=== PATIENT | male | born 1965 | race Caucasian/White ===

== ENCOUNTER 2019-12-05 06:41 | Day surgery (SDC) | payer OTHER, SELFPAY ==
--- NOTE | 2019-12-05 | PATH_ITS ---
[facility] Accession Number: [id number] . 01 Material submitted: . sigmoid colon - SIGMOID POLYP 25 CM . 02 Diagnosis: Sigmoid Colon at 25 cm, Polyp: Tubular adenoma. MRV 12/06/2019 0959 Local . 02 Electronically signed: . Darnell Gay MD, PhD, Pathologist NPI- [id number] . 01 Gross description: . SIGMOID POLYP 25 CM: Received in formalin are 2 fragment(s) of sena, soft tissue measuring 0.1 x 0.1 x 0.1 cm to 0.2 x 0.2 x 0.2 cm submitted entirely in 1 cassette(s) /[facility] 12/05/2019 1924 Local . 02 Pathologist provided ICD-10: D12.5 . 02 CPT . 643257 Performed at: 01 [facility] [address] [id number] MD López Umaña MD Phone: [phone] Performed at: 02 [facility] [address] [place], [place] [id number] MD Amy Gregory MD Phone: [phone]
[2019-12-05 07:25] VITALS: BP 117/81; PULSE 93; RESP 17; TEMP 36.3; O2SAT 93; BMI 23.7
--- NOTE | 2019-12-05 07:50 | PM.HP.1 ---
History of Present Illness History of Present Illness Date Patient Seen: 12/05/19 Time Patient Seen: 07:50 Chief complaint: [id number] Narrative: The patient is a gentleman here for his 1st colonoscopy. He had a positive fit test. Patient History Medical History (Updated 12/05/19 @ 07:51 by Uday Hidalgo MD) Appendicitis (Inactive) Family & Social History Social History: household members spouse Tobacco & Substance use: Smoking Status Never smoker alcohol intake current alcohol intake frequency a few times a week Substance Use Type does not use Meds Home Medications and Allergies Home Medications Medication Instructions Recorded Confirmed Type ibuprofen-diphenhydramine cit 1 cap PO QWEEK PRN 12/05/19 12/05/19 History [Motrin PM] ranitidine HCl [Zantac] 150 mg PO WEEKLY 12/05/19 12/05/19 History sildenafil [Viagra] 25 mg PO DAILY PRN 12/05/19 12/05/19 History Allergies Allergy/AdvReac Type Severity Reaction Status Date / Time No Known Drug Allergies Allergy Verified 12/05/19 07:23 Review of Systems Review of Systems ROS: Yes All systems reviewed with the patient and are negative except as otherwise documented Gastrointestinal Comments: Reflux Neurologic Comments: Occasional migraines Exam Vital Signs (past 8 hours): - 12/05/19 07:25 Temperature 97.3 F L Pulse Rate 93 H Respiratory Rate 17 Blood Pressure 117/81 Pulse Oximetry 93 Oxygen Delivery Method Room Air Narrative Exam Narrative: Pleasant cooperative patient no apparent distress. Lungs are clear to auscultation. No rales or rhonchi. Heart regular rate and rhythm no murmur gallop. Abdomen is soft nontender without mass. No obvious hernias. Patient is alert and oriented x3. Assessment & Plan Assessment and plan (1) Appendicitis: Current visit: No Status: Inactive Assessment & Plan narrative: The patient for a screening colonoscopy. I have discussed the procedure with them. Risks of bleeding, perforation which would necessitate major operation, failure to find remove all lesions, the potential tattoo were all discussed. All questions were answered. They wished to proceed.
--- NOTE | 2019-12-05 07:52 | PM.PREOP ---
Pre-operative Note Interval Note History & Physical reviewed/Exam performed by Physician: Yes Changes to H&P: No ASA Class (for procedural sedation): I
[2019-12-05] MEDS: fentaNYL 250 MCG/5 ML INJ IV (08:24)
[2019-12-05] MEDS: MIDAZOLAM 5 MG/ML VIAL IM (08:25)
--- NOTE | 2019-12-05 08:25 | PM.OP.ENDO ---
Operative Date/Time/Diagnoses Date of procedure: 12/05/19 Time of procedure: 08:25 Pre-op diagnosis: Positive fit test. This is his 1st colonoscopy Post-op diagnosis: same (One small polyp. Sigmoid diverticulosis.) Procedure & Clinicians Study performed: Colonoscopy with cold biopsy Same procedure as scheduled: Yes Indications: Screening/fit test positive Surgeon: Uday Hidalgo Procedure Notes SCOAP/Timeout: Perform Procedure in detail: The patient was placed in the left lateral decubitus position and underwent IV sedation directed by the surgeon consisting of fentanyl and Versed. Digital exam was unremarkable. I could feel no masses in his prostate.. The scope was inserted and advanced through the rectum into the sigmoid, descending, transverse, and ascending colon. He had a small polyp in the sigmoid colon which I biopsied on the way in and removed it. He was also noted to have diverticulosis.. The cecum was reached identified by the ileocecal valve and the appendiceal opening. The ileocecal valve was successfully cannulated. The terminal ileum was normal in appearance. The scope was gradually brought out. No other Polyps were found. The scope ultimately was retroflexed in the rectum. The appearance was remarkable for internal hemorrhoids without ulceration.. The scope was removed and the patient tolerated the procedure well. The prep was good Scope withdrawal time: 8 minutes Sedation minutes: 22 Findings: diverticulosis (Principally sigmoid) and polyp (Small polyp at 25 cm. ) Specimen(s): other (Polyps) Complications: none Post-procedure Recommendations: Colonscopy in 5 years (Unless the polyp is not neoplastic(adenomatous). In that case 10 years would be more appropriate) Follow up: as needed Disposition: PACU
[2019-12-05 08:28] VITALS: BP 114/77; PULSE 93; RESP 7; TEMP 36.4; O2SAT 93
[2019-12-05 08:33] VITALS: BP 106/74; PULSE 93; RESP 8; O2SAT 93
[2019-12-05 08:38] VITALS: BP 115/80; PULSE 88; RESP 15; O2SAT 98
[2019-12-05 08:42] VITALS: BP 120/78; PULSE 93; RESP 11; O2SAT 95
[2019-12-05 09:10] VITALS: BP 112/77; PULSE 73; RESP 16; TEMP 36.3; O2SAT 95
== END 2019-12-05 09:42 | disposition home or self-care (01) ==
PROVIDERS: PCP Physician Assistant; Referring Provider Specialist; Visit Provider Specialist
PROC: 0DJD8ZZ Inspection of Lower Intestinal Tract, Via Natural or Artificial Opening Endoscopic (ICD-10-PCS; CPT 45378; principal; 2019-12-05 07:45)
DX: R19.5 Other fecal abnormalities (principal); K57.30 Diverticulosis of large intestine without perforation or abscess without bleeding; D12.5 Benign neoplasm of sigmoid colon
CPT/HCPCS: 45380; 99152; J2250; J3010

== ENCOUNTER → 2020-09-27 09:35 | Outpatient (CLI) | payer OTHER, SELFPAY ==
[2020-09-27 12:26] LABS: COVID19 -Nasal RAPID Negative (Negative)
== END ==
PROVIDERS: Visit Provider Specialist
DX: Z01.812 Encounter for preprocedural laboratory examination (principal); Z20.828 Contact with and (suspected) exposure to other viral communicable diseases
CPT/HCPCS: 87635; C9803

== ENCOUNTER 2020-09-30 08:05 | Day surgery (SDC) | payer OTHER, SELFPAY ==
[2020-09-26 11:56] VITALS: BMI 25.7
[2020-09-30] VITALS (8 sets, daily range): BP systolic 106–124; BP diastolic 72–83; PULSE 62–78; RESP 10–20; TEMP 36.1–36.4; O2SAT 95–98; BMI 24.9
--- NOTE | 2020-09-30 | PATH_ITS ---
[facility] Accession Number: [id number] . 01 Material submitted: . PART A: back - RIGHT BACK MASS PART B: forearm - RIGHT DISTAL FOREARM MASS PART C: forearm - RIGHT UPPER FOREARM MASS PART D: arm - UPPER RIGHT UPPER ARM LESION POSTERIOR PART E: arm - LOWER RIGHT UPPER ARM LESION POSTERIOR . 01 Diagnosis: A. Right Back, Excision: Mature fibroadipose tissue, consistent with lipoma. . B. Right Distal Forearm, Excision: Angiolipoma. . C. Right Upper Forearm, Excision: Angiolipoma. . D. Upper Right Upper Arm Posterior, Excision: Angiolipoma. . E. Lower Right Upper Arm Posterior, Excision: Angiolipoma. [facility] 10/02/2020 0957 Local . 01 Electronically signed: . Francois Carranza MD, Dermatopathologist NPI- [id number] . 01 Gross description: . A. Received in formalin and labeled with right back mass is one piece of sena adipose tissue, measuring 5.3 x 3.8 x 2.3 cm. The tissue is inked, serially and transversely sectioned and submitted in regional sales representative sections in cassettes A1-A4, with one slice per cassette. B. Received in formalin and labeled with distal R forearm mass is one piece of sena adipose tissue, measuring 2.2 x 2.0 x 0.6 cm. The tissue is inked, serially sectioned into six slices and entirely submitted in cassettes B1 and B2, with three slices per cassette. C. Received in formalin and labeled with right upper forearm mass is one piece of sena adipose tissue, measuring 2.0 x 2.0 x 0.7 cm. The tissue is inked, serially sectioned into five slices, and entirely submitted in cassettes C1 and C2. Cassette C1 contains three slices and cassette C2 contains two slices. D. Received in formalin and labeled with upper right upper arm lesion posterior is one piece of sena adipose tissue, measuring 1.7 x 1.2 x 0.4 cm. The tissue inked, serially sectioned into five slices and entirely submitted in cassette D1. E. Received in formalin and labeled with lower right upper arm lesion posterior is one piece of sean adipose tissue, measuring 0.9 x 0.8 x 0.3 cm. The tissue is inked, trisected, and entirely submitted in cassette E1. ([id number]) /[facility] 10/01/2020 1656 Local . 01 Pathologist provided ICD-10: D17.9 . 01 CPT . 212838, 444635, 897658, 716641, 698259 Performed at: 01 [facility] [address] [place] [address], [place], [place] [id number] MD López Umaña MD Phone: [phone]
[2020-09-30] MEDS: LACTATED RINGERS 1,000 ML 100 ML IV (08:21)
--- NOTE | 2020-09-30 10:07 | PM.PREOP ---
Pre-operative Note COVID-19 COVID-19 status: Negative Result date/Date tested (Pos, Neg/Pending): 09/27/20 Interval Note History & Physical reviewed/Exam performed by Physician: Yes Changes to H&P: Yes H&P completed within 30 days and has changed as indicated here:: The patient has decided to have lesions removed only from his right upper arm and forearm and back and not his left side.
[2020-09-30] MEDS: CEFAZOLIN 2 GM/100 ML FROZ.PIGGY IV (10:20)
--- NOTE | 2020-09-30 10:39 | SUR.OPER ---
Left lateral on pastor bag, head on pillow, gel axillary roll in place, bottom leg bent with gel pad under knee to foot, upper leg straight and supported with pillows. Upper arm supported by pillows and secured over bottom arm to padded arm board. Safety belt at hip, tape over blanket lower legs.
[2020-09-30] MEDS: BUPIVACAINE 0.5% (PF) VIAL 30 ML INJ (10:48)
--- NOTE | 2020-09-30 11:59 | SUR.PHASEI ---
Pt received to PACU at 1154 after general anesthesia. Airway patent, self maintained. Report received from Dr Stein and LOUISA Al.
--- NOTE | 2020-09-30 12:18 | P.OP_ITS ---
Operative Date/Time/Diagnoses Date of procedure: 09/30/20 Time of procedure: 12:00 Pre-op diagnosis: Multiple subcutaneous masses consistent with lipomas Post-op diagnosis: same Procedure & Clinicians Procedure: Excision of 4 masses from the arm 2 in the forearm(1.5 and 2.5 cm masses) and 2 in the upper arm(1.5 and 1 cm masses). Excision of right back lesion over the scapula(measured 4cm). Same procedure as scheduled: Yes Indications: Painful masses Surgeon: Uday Hidalgo Click Yes if Unassisted: Yes Anesthesia Type: General Operative Notes Findings: Mass is visibly consistent with lipomas. Closure Type: primary Specimen(s): other (Five masses sent in separate containers) Estimated Blood Loss (mL): 15 Blood products transfused: none Procedure in detail: The patient was placed in left lateral decubitus position on a beanbag and was padded appropriately. He was prepped and draped in the usual fashion to expose is back lesion. Local anesthetic was infiltrated over it and a transverse incision made over top of the lesion. It was sized using principally cautery. It was adherent to the underlying fascia. Cautery was used to control bleeding. 3-0 Vicryl was used to close the subcu fat and a running 4-0 Vicryl subcuticular stitch was used to close the skin. Steri-Strips and dressing were applied. The drapes were taken down. The right arm was prepped and draped. Incisions were made over each of these masses separately. This carried down level the mass which was in the subcu. The masses were excised and cautery used to control bleeding. Closure in all areas was identical in that a 3-0 Vicryl was used to close the subcutaneous fat any and 4- 0 nylon was used to close the skin. Complications: none Post-operative Condition: stable Disposition: PACU
[2020-09-30] MEDS: ACETAMINOPHEN 325 MG TABLET 650 MG PO (12:27)
[2020-09-30] MEDS: OXYCODONE IR 5 MG TABLET PO (12:28)
== END 2020-09-30 12:45 | disposition home or self-care (01) ==
PROVIDERS: PCP Specialist; Referring Provider Specialist; Visit Provider Specialist
PROC: (CPT 21931; principal; 2020-09-30 09:15)
DX: D17.1 Benign lipomatous neoplasm of skin and subcutaneous tissue of trunk (principal); D17.21 Benign lipomatous neoplasm of skin and subcutaneous tissue of right arm
CPT/HCPCS: 21931; 24075 ×2; 25075 ×2; 82962; J0690; J2704; J3010

== ENCOUNTER → 2021-01-31 14:48 | Outpatient (CLI) | payer OTHER, SELFPAY ==
[2021-01-31] MEDS: COVID-19 VACC #2, MRNA(MOD) 100 MCG/0.5 ML VIAL IM (14:53)
== END ==
PROVIDERS: PCP Specialist; Visit Provider Internal Medicine
DX: Z23 Encounter for immunization (principal)
CPT/HCPCS: 0012A; 91301

== ENCOUNTER 2021-06-25 09:59 | Emergency (ER) | payer OTHER, SELFPAY ==
[2021-06-25] VITALS (7 sets, daily range): BP systolic 125–139; BP diastolic 76–87; PULSE 71–79; RESP 12–18; TEMP 36.7; O2SAT 94–100; BMI 23.7
--- NOTE | 2021-06-25 10:03 | DI.RAD.S_ITS ---
PROCEDURE: XR CHEST 1V INDICATIONS: chest pain TECHNIQUE: One view of the chest was acquired. COMPARISON: None. FINDINGS: Surgical changes and devices: None. Lungs and pleura: Lungs are clear. No pleural effusions or pneumothorax. Mediastinum: Mediastinal contours appear normal. Heart size is normal. Bones and chest wall: No suspicious bony lesions. Overlying soft tissues appear unremarkable. IMPRESSION: No acute pulmonary process. Dictated by: Elsy Calvo M.D. on 06/25/2021 at 11:04 Approved by: Elsy Calvo M.D. on 06/25/2021 at 11:05
--- NOTE | 2021-06-25 10:15 | ED_ITS ---
HPI - Chest Pain General Chief Complaint: Chest Pain Stated Complaint: CP/SOB Time Seen by Provider: 06/25/21 10:01 Source: patient and EMS Mode of arrival: EMS History of Present Illness HPI narrative: Patient is a 55-year-old male brought in by EMS for evaluation of an episode that occurred this morning. 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 He was out on the water. After catching the 2nd fish he stated that he had an episode where he felt very lightheaded. It was not a vertigo sensation. He stated that he felt like he was going to pass out. He had no chest pain. No shortness of breath. No palpitations. Lasted several minutes. Has improved since the onset. No nausea vomiting. No GI complaints. No urinary symptoms. [place]. He does have a prescription for Viagra and he use this 3 days ago. Had no symptoms during that time Related Data Home Medications Medication Instructions Recorded Confirmed sildenafil 25 mg tablet (Viagra) 50 mg PO DAILY PRN 12/05/19 06/25/21 ibuprofen 600 mg tablet 600 mg PO Q4H PRN 09/30/20 06/25/21 Allergies Allergy/AdvReac Type Severity Reaction Status Date / Time No Known Drug Allergies Allergy Verified 06/25/21 10:07 Review of Systems Constitutional Constitutional: Reports system reviewed and no additional complaints, except as documented Cardiovascular Cardiovascular: Reports system reviewed and no additional complaints, except as documented Respiratory Respiratory: Reports system reviewed and no additional complaints, except as documented Gastrointestinal Gastrointestinal: Reports system reviewed and no additional complaints, except as documented Musculoskeletal Musculoskeletal: Reports system reviewed and no additional complaints, except as documented Integumentary/Breasts Skin/Breast: Reports system reviewed and no additional complaints, except as documented Neurologic Neurologic: Reports as per HPI Hematologic/Lymphatic On Anticoagulants: No Allergic/Immunologic Allergic/Immunologic: Reports system reviewed and no additional complaints, except as documented Patient History Medical History Aftercare following right elbow joint replacement surgery Appendicitis History of lipoma Surgical History H/O right knee surgery H/O right wrist surgery History of appendectomy History of colonoscopy History of excision of mass History of hernia repair Hx of neck surgery Social History household members: spouse and children Smoking Status: Never smoker alcohol intake: current Smoking Status: Never smoker alcohol intake frequency: a few times a week Substance Use Type: does not use Exam Initial Vital Signs Initial Vital Signs: Vital Signs Temperature 98.1 F 06/25/21 10:00 Pulse Rate 79 06/25/21 10:00 Respiratory Rate 18 06/25/21 10:00 Blood Pressure 139/87 06/25/21 10:00 Pulse Oximetry 99 06/25/21 10:00 Const General: cooperative and comfortable HENMT Head: normal to inspection and normocephalic Ears: TM's normal bilaterally Face and sinus: normal facial exam Eyes General: appearance normal, both eyes and all related structures Resp Effort & Inspection: normal respiratory effort Auscultation: clear to auscultation bilaterally Cardio Rate: regular rate Rhythm: regular rhythm GI Inspection: normal to inspection Palpation: soft Skin General: no rashes or lesions noted Neuro General: patient alert, patient awake, patient oriented x3 and moves all extremities Speech: speech normal Gait: normal gait Extrem General: normal to inspection and capillary refill normal Psych Appearance: grossly normal and well kempt Scores GCS [place] coma scale eye opening: Spontaneous Mayte coma scale verbal response: Orientated Mayte coma scale motor response: Obey commands Mayte coma scale total score: 15 Course Orders Ordered: ED Orders 06/25/21 10:03 XR chest 1V Stat EKG-12 Lead Stat 06/25/21 10:04 COVID19 -Nasal swab/Pre-Proc Stat 06/25/21 10:10 Complete Blood Count AUTO DIFF Stat Comprehensive Metabolic Panel Stat Lipase Stat Troponin & CK Cardiac Panel Stat Discontinued Medications Sodium Chloride (Normal Saline 0.9%) 1,000 mls @ 1,000 mls/hr IV BOLUS ONE Stop: 06/25/21 11:01 Last Infusion: 06/25/21 11:08 Dose: 0 mls/hr Documented by: Admin: 06/25/21 10:17 Dose: 1,000 mls/hr Documented by: LOUISE Vital Signs Vital signs: Vital Signs - 8 hr 06/25/21 10:00 06/25/21 10:03 06/25/21 10:30 Temperature 98.1 F Pulse Rate 79 77 71 Respiratory Rate 18 12 15 Blood Pressure 139/87 139/87 131/82 Pulse Oximetry 99 99 98 06/25/21 11:00 06/25/21 11:32 06/25/21 11:35 Temperature Pulse Rate 71 76 73 Respiratory Rate 15 15 Blood Pressure 129/79 132/83 Pulse Oximetry 99 94 100 MDM - Chest Pain Lab Data Attestation: I reviewed the patient's lab results. Result diagrams: 06/25/21 10:10 06/25/21 10:10 Labs: Lab Results 06/25/21 06/25/21 06/25/21 Range/Units 10:04 10:10 10:10 WBC 3.6 L (4.5-11.0) X10^3/uL RBC 5.14 (4.5-5.9) X10^6/uL Hgb 15.2 (13.5-17.5) g/dL Hct 43.0 (41-53) % MCV 83.7 (80-100) fL MCH 29.6 (26-34) PG MCHC 35.4 (30-36) % RDW 13.5 (11.6-14.8) % Plt Count 175 (150-400) X10^3/uL Neut % (Auto) Not Reportable Lymph % (Auto) Not Reportable [place] % (Auto) Not Reportable Eos % (Auto) Not Reportable Baso % (Auto) Not Reportable Lymph # (Auto) Not Reportable [place] # (Auto) Not Reportable Baso # (Auto) Not Reportable Total Counted 100 Seg Neutrophils % 59.0 (38-70) % Band Neutrophils % 1.0 L (3-7) % Lymphocytes % (Manual) 28.0 (25-45) % Atypical Lymphs % 2.0 H ( - 0) % Monocytes % (Manual) 8.0 (2-11) % Eosinophils % (Manual) 1.0 L (2-4) % Basophils % (Manual) 1.0 (0-1) % Neutrophils # (Manual) 2160 L (3239-2626) /uL RBC Morphology Normal morphology Sodium 140 (137-145) mmol/L Potassium 3.4 (3.4-5.1) mmol/L Chloride 105 (98-107) mmol/L Carbon Dioxide 29 (22-32) mmol/L BUN 16 (9-20) mg/dL Creatinine 0.99 (0.66-1.25) mg/dL Estimated GFR > 60.0 (>60) mL/min BUN/Creatinine Ratio 16.2 (6-22) Glucose 106 H (70-100) mg/dL Calcium 9.1 (8.4-10.2) mg/dL Total Bilirubin 2.7 H (0.2-1.3) mg/dL AST 38 (17-59) IU/L ALT 43 (<50) IU/L Alkaline Phosphatase 55 (38-126) U/L Total Creatine Kinase 100 (55-170) U/L CK-MB (CK-2) TNP CK-MB (CK-2) Rel Index TNP Troponin I < 0.012 (0.01-0.034) ng/mL Total Protein 7.3 (6.3-8.2) g/dL Albumin 4.9 (3.5-5.0) g/dL Globulin 2.4 (1.7-4.1) g/dL Albumin/Globulin Ratio 2.0 (1.0-2.8) Lipase 118 (23-300) U/L SARS-CoV-2 (PCR) Negative (Negative) Urine Dip Bedside Urine Glucose Negative Bedside Urine Bilirubin - Negative Bedside Urine Ketone - Negative Urine Specific [place] 1.015 Bedside Urine Occult Blood - Negative Bedside Urine pH 6.0 Bedside Urine Protein - Negative Bedside Urine Urobilinogen 0.2 Bedside Urine Nitrite - Negative Bedside Urine Leukocytes - Negative Esterase Imaging Data Chest x-ray: Radiologist's Impression: [address] [address] XRay Report Signed Patient: Karl Marmolejo MR#: [id number] : 1965 Acct:[id number] Age/Sex: 55 / M Date of Service: 06/25/21 Loc: ED Accession Number: [id number] ?? Procedure: XR chest 1V Ordering Provider: Rafy Espinal D.O. PROCEDURE:? XR CHEST 1V ? INDICATIONS:? chest pain ? TECHNIQUE:? One view of the chest was acquired.? ? COMPARISON:? None. ? FINDINGS:? ? Surgical changes and devices:? None.? ? Lungs and pleura:? Lungs are clear.? No pleural effusions or pneumothorax.? ? Mediastinum:? Mediastinal contours appear normal.? Heart size is normal.? ? Bones and chest wall:? No suspicious bony lesions.? Overlying soft tissues appear unremarkable.? ? IMPRESSION:? No acute pulmonary process. ? ? Dictated by: Elsy Calvo M.D. on 06/25/2021 at 11:04 ? ? Approved by: Elsy Calvo M.D. on 06/25/2021 at 11:05?? ECG Data Attestation: I personally reviewed and interpreted this ECG as follows: Interpretation: Sinus rhythm Ventricular rate of 78 Normal axis Normal QRS Normal QTC No ST T wave changes Unchanged EKG from 1 transmitted from the EMS crew. MDM Narrative Medical decision making narrative: Labs are unremarkable. EKG is unremarkable. Vital signs unremarkable. No ectopy noted on the monitors. Low suspicion for CVA/TIA. Low suspicion for ACS. With the patient contact his primary doctor for follow-up to discuss potential workup to include a Holter monitor. He was given return precautions. He expressed understanding and agreement. Discharge Plan Departure Patient Disposition: Home Clinical Impression: Lightheadedness Instructions: DI for Dizziness-Nonvertigo Activity Restrictions/Additional Instructions: Recommend that you continue all of your medications as directed. Also recommend you contact your primary doctor is you will need further evaluation to include a discussion about the indications for a Holter monitor given your symptoms. Return to the emergency department for any new or worsening symptoms. Prescriptions: No Action sildenafil [Viagra] 25 mg Tablet 50 mg PO DAILY PRN (Reason: Erectile Dysfunction) RF: 0 ibuprofen 600 mg tablet 600 mg PO Q4H PRN (Reason: Pain (Scale Score 1-3)) RF: 0 Referrals: Uday Hidalgo MD [Primary Care Provider] -
[2021-06-25] MEDS: SODIUM CHLORIDE 0.9% 1,000 ML 1000 ML IV (10:17)
[2021-06-25 10:18] LABS: Platelet Count 175 X10^3/uL (150-400); White Blood Cell Count 3.6 X10^3/uL (4.5-11.0)
[2021-06-25 10:22] LABS: Alanine Aminotransferase 43 IU/L (<50); Albumin 4.9 g/dL (3.5-5.0); Alkaline Phosphatase 55 U/L (38-126); Aspartate Aminotransferase 38 IU/L (17-59); BUN Creatinine Ratio 16.2 (6-22); Bilirubin Total 2.7 mg/dL (0.2-1.3); Blood Urea Nitrogen 16 mg/dL (9-20); Calcium 9.1 mg/dL (8.4-10.2); Carbon Dioxide 29 mmol/L (22-32); Chloride 105 mmol/L (98-107); Creatine Kinase 100 U/L (55-170); Estimated Glomerular Filt Rate > 60.0 mL/min (>60); Globulin 2.4 g/dL (1.7-4.1); Glucose 106 mg/dL (70-100); HEMOLYSIS < 15 (0-50); Lipase 118 U/L (23-300); Potassium 3.4 mmol/L (3.4-5.1); Sodium 140 mmol/L (137-145); Total Protein 7.3 g/dL (6.3-8.2)
[2021-06-25 10:24] LABS: Hemoglobin 15.2 g/dL (13.5-17.5); Mean Corpuscular HGB Conc 35.4 % (30-36); Mean Corpuscular Hemoglobin 29.6 PG (26-34); Mean Corpuscular Volume 83.7 fL (80-100); Red Blood Cell Count 5.14 X10^6/uL (4.5-5.9); Red Cell Distribution Width 13.5 % (11.6-14.8)
[2021-06-25 10:26] LABS: Add Manual Diff / Slide Review YES
[2021-06-25 10:34] LABS: Troponin I < 0.012 ng/mL (0.01-0.034)
[2021-06-25 11:19] LABS: Neutrophils Absolute Manual 2160 /uL (3000-5900); Total Cells Counted 100
[2021-06-25 11:24] LABS: RBC Morphology Normal Morphology
[2021-06-25 11:27] LABS: COVID19 -Nasal RAPID Negative (Negative)
== END 2021-06-25 12:35 | disposition home or self-care (01) ==
PROVIDERS: Emergency Provider Emergency Medicine; PCP Specialist
DX: R42 Dizziness and giddiness (principal); R07.9 Chest pain, unspecified; Z20.822 Contact with and (suspected) exposure to COVID-19
CPT/HCPCS: 71045; 80053; 81003; 82550; 83690; 84484; 85007; 85025; 87635; 93005; 93010; 96360; 99284; C9803

== ENCOUNTER 2023-05-06 10:07 | Emergency (ER) | payer OTHER, SELFPAY ==
[2023-05-06] VITALS (10 sets, daily range): BP systolic 138–143; BP diastolic 80–83; PULSE 74–85; RESP 20; TEMP 36.6; O2SAT 95–98; BMI 24.3
[2023-05-06 10:54] LABS: Add Manual Diff / Slide Review NO; Alanine Aminotransferase 40 IU/L (<50); Albumin 4.2 g/dL (3.5-5.0); Albumin Globulin Ratio 1.7 (1.0-2.8); Alkaline Phosphatase 87 U/L (38-126); Aspartate Aminotransferase 44 IU/L (17-59); BUN Creatinine Ratio 18.5 (6-22); Basophils Absolute Auto 0 /uL (0-100); Basophils Percent Auto 0.6 % (0-2); Bilirubin Total 2.3 mg/dL (0.2-1.3); Blood Urea Nitrogen 15 mg/dL (9-20); Calcium 8.5 mg/dL (8.4-10.2); Carbon Dioxide 26 mmol/L (22-32); Chloride 108 mmol/L (98-107); Eosinophils Absolute Auto 100 /uL (0-450); Eosinophils Percent Auto 2.4 % (2-4); Estimated Glomerular Filt Rate > 60 mL/min (>60); Globulin 2.5 g/dL (1.7-4.1); Glucose 99 mg/dL (70-100); HEMOLYSIS 27 (0-50); Hematocrit 40.4 % (41-53); Hemoglobin 14.5 g/dL (13.5-17.5); Lipase 117 U/L (23-300); Lymphocytes Absolute Auto 900 /uL (1100-4500); Lymphocytes Percent Auto 25.5 % (25-40); Mean Corpuscular HGB Conc 35.7 % (30-36); Mean Corpuscular Hemoglobin 29.5 PG (26-34); Mean Corpuscular Volume 82.4 fL (80-100); Monocytes Absolute Auto 200 /uL (0-900); Monocytes Percent Auto 6.1 % (3-14); Neutrophils Absolute Auto 2400 /uL (1500-7000); Neutrophils Percent Auto 65.4 % (50-75); Platelet Count 168 X10^3/uL (150-400); Potassium 3.9 mmol/L (3.4-5.1); Red Blood Cell Count 4.91 X10^6/uL (4.5-5.9); Red Cell Distribution Width 13.8 % (11.6-14.8); Sodium 140 mmol/L (137-145); Total Protein 6.7 g/dL (6.3-8.2); White Blood Cell Count 3.7 X10^3/uL (4.5-11.0)
[2023-05-06 11:22] LABS: Ammonia (NH3) 15 umol/L (9-30)
--- NOTE | 2023-05-06 11:28 | DI.CT.S_ITS ---
PROCEDURE: CT ABDOMEN PELVIS W CON INDICATIONS: periumbilical pain x 2 weeks, hx appendectomy, fatigue TECHNIQUE: After the administration of intravenous contrast, axial sections acquired from the lung bases to the pubic symphysis. Coronal and sagittal reformats were performed. For radiation dose reduction, the following was used: automated exposure control, adjustment of mA and/or kV according to patient size. COMPARISON: [facility], CT, ABDOMEN/PELVIS WITH CONTRAST, 05/28/2017, 10:09. FINDINGS: Image quality: Excellent. Lung bases: Unremarkable. Heart: No significant findings. ABDOMEN: Liver: Unremarkable. Gallbladder: Unremarkable. Biliary ducts: Unremarkable. Pancreas: Unremarkable. Spleen: Unremarkable. Adrenal Glands: Unremarkable. Kidneys and Ureters: Unremarkable. Stomach and Bowel: Sigmoid diverticulosis without evidence of diverticulitis. Peritoneum: No abnormal intraperitoneal fluid. No free air. Ventral Wall: No hernias. Abdominal Nodes: No retroperitoneal or mesenteric adenopathy by size criteria. Vessels: Aorta and inferior vena cava are normal in size. Circumaortic left renal vein incidentally noted. PELVIS: Pelvic Organs: Unremarkable. Bladder: Unremarkable. Pelvic Nodes: No enlarged lymph nodes. Miscellaneous: No hernias are seen. Bones: No lytic or blastic bony lesions. No compression fractures. IMPRESSION: 1. Sigmoid diverticulosis. 2. No acute abdominal process noted. Dictated by: Augusto Frye M.D. on 05/06/2023 at 12:32 Approved by: Augusto Frye M.D. on 05/06/2023 at 12:34
--- NOTE | 2023-05-06 12:14 | ED.ABDPAIN ---
HPI - Abdominal Pain <SLIME Devine - Last Filed: 05/06/23 14:28> General Chief Complaint: Abdominal Pain Stated Complaint: LATHARGIC, ABD PAIN, BACK PAIN, LIGHT HEADED Time Seen by Provider: 05/06/23 11:07 Source: patient Mode of arrival: Ambulatory History of Present Illness HPI narrative: This is a 57-year-old gentleman who presents to the emergency department with periumbilical pain he states has been going on for several weeks, he has a history of Gilbert's syndrome and states that he has chronically elevated T bilirubin. He endorses history of appendectomy, states that he is had fatigue over the last 2 weeks, periumbilical pain which is constant, states that he was in [place] 1 week ago and had fever with diarrhea 5 days ago which has resolved. He states he is had normal stools since then, reports that his urine smells sweet and is pink in color. He denies any other abdominal pain, states it is focal and periumbilical only it does not radiate. He denies dysuria, recent fever chills, complains of tenderness when he pushes on this area in his abdomen. Related Data Home Medications Medication Instructions Recorded Confirmed sildenafil 25 mg tablet (Viagra) 50 mg PO DAILY PRN Erectile 12/05/19 06/25/21 Dysfunction ibuprofen 600 mg tablet 600 mg PO Q4H PRN Pain (Scale 09/30/20 06/25/21 Score 1-3) Allergies Allergy/AdvReac Type Severity Reaction Status Date / Time No Known Drug Allergies Allergy Verified 06/25/21 10:07 Review of Systems <SLIME Devine - Last Filed: 05/06/23 14:28> Review of Systems ROS Unobtainable: All systems reviewed & are unremarkable except as noted in HPI and below Patient History <SLIME Devine - Last Filed: 05/06/23 14:28> Medical History Aftercare following right elbow joint replacement surgery Appendicitis History of lipoma Surgical History H/O right knee surgery H/O right wrist surgery History of appendectomy History of colonoscopy History of excision of mass History of hernia repair Hx of neck surgery Social History household members: spouse and children Smoking Status: Never smoker alcohol intake: current Smoking Status: Never smoker alcohol intake frequency: a few times a week Substance Use Type: does not use Exam <SLIME Devine - Last Filed: 05/06/23 14:28> Narrative Exam Narrative: Reviewed vitals signs and nursing notes. General: Pleasant, sitting upright, in no acute distress, well groomed, afebrile HEENT: symmetrical facial expressions, moist mucous membranes, neck is supple CV: regular rate and rhythm, warm extremities Respiratory: normal work of breathing, without tachypnea or hypoxia. GI: abdomen soft, nondistended, without CVA tenderness bilaterally. Patient does not have any exquisite tenderness of his abdomen or flank, he has mild tenderness to the periumbilical region with deep palpation. MSK: moves all extremities, no weakness, normal tone, ambulatory without deficit Skin: brisk capillary refill, without rash or wound Neuro: clear speech and normal cognition, A&O x3, GCS 15, no focal motor or sensation deficits Initial Vital Signs Initial Vital Signs: Vital Signs Pulse Rate 85 05/06/23 10:11 Pulse Oximetry 98 05/06/23 10:11 <Prem Chiang MD - Last Filed: 05/11/23 12:09> Initial Vital Signs Initial Vital Signs: Vital Signs Pulse Rate 85 05/06/23 10:11 Pulse Oximetry 98 05/06/23 10:11 Course <SLIME Devine - Last Filed: 05/06/23 14:28> Orders Ordered: ED Orders 05/06/23 10:15 Complete Blood Count AUTO DIFF Stat Comprehensive Metabolic Panel Stat Lipase Stat 05/06/23 11:02 Ammonia (NH3) Stat 05/06/23 11:28 CT abdomen pelvis w con Stat 05/06/23 12:20 COVID19 -Nasal RAPID Stat Vital Signs Vital signs: Vital Signs - 8 hr 05/06/23 10:24 05/06/23 10:11 05/06/23 10:12 Temperature 97.9 F Pulse Rate 81 85 Respiratory Rate 20 Blood Pressure 143/83 H 143/83 H Pulse Oximetry 96 98 Oxygen Delivery Method Room Air 05/06/23 10:12 05/06/23 10:30 05/06/23 11:00 Temperature Pulse Rate 85 75 80 Respiratory Rate Blood Pressure Pulse Oximetry 98 97 97 Oxygen Delivery Method 05/06/23 11:30 05/06/23 12:00 05/06/23 12:30 Temperature Pulse Rate 76 74 77 Respiratory Rate Blood Pressure Pulse Oximetry 95 98 97 Oxygen Delivery Method 05/06/23 13:00 05/06/23 13:03 05/06/23 13:03 Temperature Pulse Rate 79 75 Respiratory Rate Blood Pressure 138/80 Pulse Oximetry 97 96 Oxygen Delivery Method <Prem Chiang MD - Last Filed: 05/11/23 12:09> Orders Ordered: ED Orders 05/06/23 10:15 Complete Blood Count AUTO DIFF Stat Comprehensive Metabolic Panel Stat Lipase Stat 05/06/23 11:02 Ammonia (NH3) Stat 05/06/23 11:28 CT abdomen pelvis w con Stat 05/06/23 12:20 COVID19 -Nasal RAPID Stat Vital Signs Vital signs: Vital Signs - 8 hr 05/06/23 10:24 05/06/23 10:11 05/06/23 10:12 Temperature 97.9 F Pulse Rate 81 85 Respiratory Rate 20 Blood Pressure 143/83 H 143/83 H Pulse Oximetry 96 98 Oxygen Delivery Method Room Air 05/06/23 10:12 05/06/23 10:30 05/06/23 11:00 Temperature Pulse Rate 85 75 80 Respiratory Rate Blood Pressure Pulse Oximetry 98 97 97 Oxygen Delivery Method 05/06/23 11:30 05/06/23 12:00 05/06/23 12:30 Temperature Pulse Rate 76 74 77 Respiratory Rate Blood Pressure Pulse Oximetry 95 98 97 Oxygen Delivery Method 05/06/23 13:00 05/06/23 13:03 05/06/23 13:03 Temperature Pulse Rate 79 75 Respiratory Rate Blood Pressure 138/80 Pulse Oximetry 97 96 Oxygen Delivery Method MDM - Abdominal Pain <SLIME Devine - Last Filed: 05/06/23 14:28> Lab Data 05/06/23 10:15 05/06/23 10:15 Labs: Lab Results 05/06/23 05/06/23 05/06/23 Range/Units 10:15 10:15 11:02 WBC 3.7 L (4.5-11.0) X10^3/uL RBC 4.91 (4.5-5.9) X10^6/uL Hgb 14.5 (13.5-17.5) g/dL Hct 40.4 L (41-53) % MCV 82.4 (80-100) fL MCH 29.5 (26-34) PG MCHC 35.7 (30-36) % RDW 13.8 (11.6-14.8) % Plt Count 168 (150-400) X10^3/uL Neut % (Auto) 65.4 (50-75) % Lymph % (Auto) 25.5 (25-40) % Hardeman % (Auto) 6.1 (3-14) % Eos % (Auto) 2.4 (2-4) % Baso % (Auto) 0.6 (0-2) % Neut # (Auto) 2400 (4857-3620) /uL Lymph # (Auto) 900 L (9598-0282) /uL Hardeman # (Auto) 200 (0-900) /uL Eos # (Auto) 100 (0-450) /uL Baso # (Auto) 0 (0-100) /uL Sodium 140 (137-145) mmol/L Potassium 3.9 (3.4-5.1) mmol/L Chloride 108 H (98-107) mmol/L Carbon Dioxide 26 (22-32) mmol/L BUN 15 (9-20) mg/dL Creatinine 0.81 (0.66-1.25) mg/dL Estimated GFR > 60 (>60) mL/min BUN/Creatinine Ratio 18.5 (6-22) Glucose 99 (70-100) mg/dL Calcium 8.5 (8.4-10.2) mg/dL Total Bilirubin 2.3 H (0.2-1.3) mg/dL AST 44 (17-59) IU/L ALT 40 (<50) IU/L Alkaline Phosphatase 87 (38-126) U/L Ammonia 15 (9-30) umol/L Total Protein 6.7 (6.3-8.2) g/dL Albumin 4.2 (3.5-5.0) g/dL Globulin 2.5 (1.7-4.1) g/dL Albumin/Globulin Ratio 1.7 (1.0-2.8) Lipase 117 (23-300) U/L SARS-CoV-2 (PCR) (Negative) 05/06/23 Range/Units 12:20 WBC (4.5-11.0) X10^3/uL RBC (4.5-5.9) X10^6/uL Hgb (13.5-17.5) g/dL Hct (41-53) % MCV (80-100) fL MCH (26-34) PG MCHC (30-36) % RDW (11.6-14.8) % Plt Count (150-400) X10^3/uL Neut % (Auto) (50-75) % Lymph % (Auto) (25-40) % Hardeman % (Auto) (3-14) % Eos % (Auto) (2-4) % Baso % (Auto) (0-2) % Neut # (Auto) (5995-6948) /uL Lymph # (Auto) (6372-8851) /uL Hardeman # (Auto) (0-900) /uL Eos # (Auto) (0-450) /uL Baso # (Auto) (0-100) /uL Sodium (137-145) mmol/L Potassium (3.4-5.1) mmol/L Chloride (98-107) mmol/L Carbon Dioxide (22-32) mmol/L BUN (9-20) mg/dL Creatinine (0.66-1.25) mg/dL Estimated GFR (>60) mL/min BUN/Creatinine Ratio (6-22) Glucose (70-100) mg/dL Calcium (8.4-10.2) mg/dL Total Bilirubin (0.2-1.3) mg/dL AST (17-59) IU/L ALT (<50) IU/L Alkaline Phosphatase (38-126) U/L Ammonia (9-30) umol/L Total Protein (6.3-8.2) g/dL Albumin (3.5-5.0) g/dL Globulin (1.7-4.1) g/dL Albumin/Globulin Ratio (1.0-2.8) Lipase (23-300) U/L SARS-CoV-2 (PCR) Negative (Negative) Point of care testing: Urine Dip Bedside Urine Glucose Negative Bedside Urine Bilirubin - Negative Bedside Urine Ketone - Negative Urine Specific Mobile 1.015 Bedside Urine Occult Blood - Negative Bedside Urine pH 6.0 Bedside Urine Protein - Negative Bedside Urine Urobilinogen - Negative Bedside Urine Nitrite - Negative Bedside Urine Leukocytes - Negative Esterase Imaging Data CT scan - abdomen/pelvis: Radiologist's Impression: CT Scan Report Signed Patient: Karl Marmolejo MR#: [id number] : 1965 Acct:[id number] Age/Sex: 57 / M Date of Service: 05/06/23 Loc: ED Accession Number: [id number] ?? Procedure: CT abdomen pelvis w con Ordering Provider: Amy Blackwell PROCEDURE:? CT ABDOMEN PELVIS W CON ? INDICATIONS:? periumbilical pain x 2 weeks, hx appendectomy, fatigue ? TECHNIQUE:? After the administration of intravenous contrast, axial sections acquired from the lung bases to the pubic symphysis.? Coronal and sagittal reformats were performed.? For radiation dose reduction, the following was used:? automated exposure control, adjustment of mA and/or kV according to patient size.? ? COMPARISON:? [facility], CT, ABDOMEN/PELVIS WITH CONTRAST, 05/28/2017, 10:09. ? FINDINGS:? Image quality:? Excellent.? ? Lung bases:? Unremarkable. Heart:? No significant findings. ? ABDOMEN: Liver:? Unremarkable.? ? Gallbladder:? Unremarkable.? ? Biliary ducts:? Unremarkable.? ? Pancreas:? Unremarkable.? ? Spleen:? Unremarkable.? ? Adrenal Glands:? Unremarkable.? ? Kidneys and Ureters:? Unremarkable.? ? ? Stomach and Bowel:? Sigmoid diverticulosis without evidence of diverticulitis.? Peritoneum:? No abnormal intraperitoneal fluid.? No free air.? ? Ventral Wall: ? No hernias.? Abdominal Nodes:? No retroperitoneal or mesenteric adenopathy by size criteria.? Vessels:? Aorta and inferior vena cava are normal in size.? Circumaortic left renal vein incidentally noted. ? PELVIS: Pelvic Organs:? Unremarkable.? ? Bladder:? Unremarkable.? ? Pelvic Nodes: No enlarged lymph nodes.? Miscellaneous: No hernias are seen. ? ? ? Bones:? No lytic or blastic bony lesions.? No compression fractures. ? ? IMPRESSION:? ? 1. Sigmoid diverticulosis. ? 2. No acute abdominal process noted. ? ? Dictated by: Augusto Frye M.D. on 05/06/2023 at 12:32 ? ? Approved by: Augusto Frye M.D. on 05/06/2023 at 12:34 ? MDM Narrative Medical decision making narrative: Chief Complaint: Periumbilical tenderness Multiple etiologies for patient's complaint considered including, but not limited to: Malignancy, hernia with complication, lymphoma, infectious colitis, colitis, nephrolithiasis, acute viral illness, parasitic GI infection No signs of intestinal obstruction such as bilious vomiting. No changes to stooling pattern recently. No recent fevers, no vomiting, is afebrile without chills or other systemic medical complaints. He complains of fatigue but no other pains. Patient's CT was negative for acute abnormality, he has sigmoid diverticulosis without diverticulitis, is having soft stools, afebrile, history of fever with diarrhea 5 days ago when he came back from [place] and has gradually gotten better over the week with no fever recently. He does not have nausea vomiting, overall exam is unremarkable. I suspect that this is related to his GI illness but he is nontoxic appearing and hydrated and given return precautions for worsening symptoms. Recommend he stay hydrated and rest as needed and follow-up with PCP for another evaluation. He was concerned about his glucose, we discussed this at length, his fasting blood sugar today was 99, this is normal, he does not have edema, a rash, or any physical symptoms of something else brewing. Social considerations that may affect disposition: none Questions are addressed and there is agreement with the plan and for follow-up. I consulted with the ED attending physician Dr. Chiang as needed for higher level of care considerations and they were available for discussion and recommendations regarding plan of care and diagnostic testing. Patient is appropriate for outpatient management. <Prem Chiang MD - Last Filed: 05/11/23 12:09> Lab Data Labs: Lab Results 05/06/23 05/06/23 05/06/23 Range/Units 10:15 10:15 11:02 WBC 3.7 L (4.5-11.0) X10^3/uL RBC 4.91 (4.5-5.9) X10^6/uL Hgb 14.5 (13.5-17.5) g/dL Hct 40.4 L (41-53) % MCV 82.4 (80-100) fL MCH 29.5 (26-34) PG MCHC 35.7 (30-36) % RDW 13.8 (11.6-14.8) % Plt Count 168 (150-400) X10^3/uL Neut % (Auto) 65.4 (50-75) % Lymph % (Auto) 25.5 (25-40) % Hardeman % (Auto) 6.1 (3-14) % Eos % (Auto) 2.4 (2-4) % Baso % (Auto) 0.6 (0-2) % Neut # (Auto) 2400 (7951-3080) /uL Lymph # (Auto) 900 L (6550-5467) /uL Hardeman # (Auto) 200 (0-900) /uL Eos # (Auto) 100 (0-450) /uL Baso # (Auto) 0 (0-100) /uL Sodium 140 (137-145) mmol/L Potassium 3.9 (3.4-5.1) mmol/L Chloride 108 H (98-107) mmol/L Carbon Dioxide 26 (22-32) mmol/L BUN 15 (9-20) mg/dL Creatinine 0.81 (0.66-1.25) mg/dL Estimated GFR > 60 (>60) mL/min BUN/Creatinine Ratio 18.5 (6-22) Glucose 99 (70-100) mg/dL Calcium 8.5 (8.4-10.2) mg/dL Total Bilirubin 2.3 H (0.2-1.3) mg/dL AST 44 (17-59) IU/L ALT 40 (<50) IU/L Alkaline Phosphatase 87 (38-126) U/L Ammonia 15 (9-30) umol/L Total Protein 6.7 (6.3-8.2) g/dL Albumin 4.2 (3.5-5.0) g/dL Globulin 2.5 (1.7-4.1) g/dL Albumin/Globulin Ratio 1.7 (1.0-2.8) Lipase 117 (23-300) U/L SARS-CoV-2 (PCR) (Negative) 05/06/23 Range/Units 12:20 WBC (4.5-11.0) X10^3/uL RBC (4.5-5.9) X10^6/uL Hgb (13.5-17.5) g/dL Hct (41-53) % MCV (80-100) fL MCH (26-34) PG MCHC (30-36) % RDW (11.6-14.8) % Plt Count (150-400) X10^3/uL Neut % (Auto) (50-75) % Lymph % (Auto) (25-40) % Hardeman % (Auto) (3-14) % Eos % (Auto) (2-4) % Baso % (Auto) (0-2) % Neut # (Auto) (2919-5426) /uL Lymph # (Auto) (9952-0250) /uL Hardeman # (Auto) (0-900) /uL Eos # (Auto) (0-450) /uL Baso # (Auto) (0-100) /uL Sodium (137-145) mmol/L Potassium (3.4-5.1) mmol/L Chloride (98-107) mmol/L Carbon Dioxide (22-32) mmol/L BUN (9-20) mg/dL Creatinine (0.66-1.25) mg/dL Estimated GFR (>60) mL/min BUN/Creatinine Ratio (6-22) Glucose (70-100) mg/dL Calcium (8.4-10.2) mg/dL Total Bilirubin (0.2-1.3) mg/dL AST (17-59) IU/L ALT (<50) IU/L Alkaline Phosphatase (38-126) U/L Ammonia (9-30) umol/L Total Protein (6.3-8.2) g/dL Albumin (3.5-5.0) g/dL Globulin (1.7-4.1) g/dL Albumin/Globulin Ratio (1.0-2.8) Lipase (23-300) U/L SARS-CoV-2 (PCR) Negative (Negative) Point of care testing: Urine Dip Bedside Urine Glucose Negative Bedside Urine Bilirubin - Negative Bedside Urine Ketone - Negative Urine Specific Mobile 1.015 Bedside Urine Occult Blood - Negative Bedside Urine pH 6.0 Bedside Urine Protein - Negative Bedside Urine Urobilinogen - Negative Bedside Urine Nitrite - Negative Bedside Urine Leukocytes - Negative Esterase Discharge Plan Departure Patient Disposition: Home Clinical Impression: Abdominal pain, periumbilical, Sigmoid diverticulosis Fatigue Qualifiers: Fatigue type: other post infection and related fatigue syndromes Qualified Code(s): G93.39 - Other post infection and related fatigue syndromes Instructions: DI for Diverticulosis Activity Restrictions/Additional Instructions: *You have been diagnosed with sigmoid diverticulosis without evidence of food diverticulitis which would be infectious. I presume you had infectious colitis when you were ill from [place]. You have had symptoms of fatigue which could be related to your immune system getting you back to a normal state. I assume you probably were burning ketones and had this in your urine and your blood sugar today was normal, your fasting blood sugar was 99. No evidence of pancreatitis, kidney stones or other organ problem in abdomen, no masses, no elevation to her white blood cell count. There could be another viral syndrome going on related to your fatigue that we did not test for, your COVID PCR was negative today. I hope you start feeling better, I am sorry for these symptoms, try some ibuprofen and Tylenol and make sure you are drinking plenty of fluids throughout the day. *What to do: *Please continue to take your regular medications as directed. [ ] New medication prescriptions sent to your pharmacy: [ ] [ ] New medication written as a paper prescription [ x] No new medications given *Please call and schedule follow up with your primary care provider in 2-3 days, at least for an update. Let them know you were seen in the Emergency Department for the above problem. We will electronically transmit a record of today's note if your PCP or specialist is in our system. *If you do not have a primary care provider please contact [phone] to establish care with one of the [facility] primary care providers. *Return to the Emergency Department for worsening symptoms, inability to keep liquids down, fever greater than 101F, chills, or other concerning symptom. Prescriptions: No Action sildenafil [Viagra] 25 mg Tablet 50 mg PO DAILY PRN (Reason: Erectile Dysfunction) ibuprofen 600 mg tablet 600 mg PO Q4H PRN (Reason: Pain (Scale Score 1-3)) Referrals: Provider,Lulú ALONZO [Primary Care Provider] - Stand Alone Forms: Patient Portal/API <Prem Chiang MD - Last Filed: 05/11/23 12:09> Cosign ED Attending Cosignature Attestation: I was immediately available in the department for consultation. ?This documentation has been reviewed and I agree with assessment and plan. Supervised by Prem Chiang MD
[2023-05-06 12:36] LABS: COVID19 -Nasal RAPID Negative (Negative)
== END 2023-05-06 13:11 | disposition home or self-care (01) ==
PROVIDERS: Emergency Medicine; Emergency Provider Nurse Practitioner Critical Care Medicine
DX: R10.33 Periumbilical pain (principal); K57.30 Diverticulosis of large intestine without perforation or abscess without bleeding; G93.39 Other post infection and related fatigue syndromes; Z20.822 Contact with and (suspected) exposure to COVID-19
CPT/HCPCS: 36415; 74177; 80053; 81003; 82140; 83690; 85025; 87635; 99284; C9803; Q9967

== ENCOUNTER → 2024-07-28 08:15 | Outpatient (CLI) | payer OTHER, SELFPAY ==
--- NOTE | 2024-07-28 | DI.MRI.S_ITS ---
PROCEDURE: MR KNEE RT WO CON INDICATIONS: RIGHT KNEE PAIN, EVAL MENISCUS INJURY TECHNIQUE: Noncontrast sagittal PD fast spin echo and T2 fast spin echo with fat saturation, sagittal 3-D FLASH with fat saturation; coronal T1 spin echo and PD fast spin echo with fat saturation, and axial PD fast spin echo with fat saturation through the knee. COMPARISON: [facility], CR, XR KNEE 4+ VIEWS RIGHT, 07/24/2024, 15:10. FINDINGS: Image quality: Excellent. Menisci: In the medial meniscus, there is a horizontal oblique tear of the meniscus body. No extrusion of the medial meniscus body. The lateral meniscus is unremarkable. Cruciate ligaments: The anterior and posterior cruciate ligaments appear intact. Medial structures: The medial collateral ligament appears intact. Lateral structures: The lateral collateral ligament, long and short heads of the biceps femoris tendon appear intact. The popliteus tendon appears normal; the popliteofibular ligament appears intact. The posterosuperior and anteroinferior popliteomeniscal fascicles appear intact. The arcuate and fabellofibular ligaments appear intact, on either side of the lateral inferior geniculate artery. Iliotibial band appears normal. Anterior structures: The quadriceps tendon is unremarkable. Mild tendinosis of the patellar tendon. Heterotopic calcification about the distal patellar tendon, representing prior injury. Trace prepatellar bursitis. The medial and lateral patellofemoral ligaments are intact. Alignment of the patellofemoral compartment is anatomic. Bones and cartilage: Mild chondral irregularity of the patella. There is focal high-grade chondral irregularity of the medial trochlea with mild subchondral marrow edema. In the medial compartment, the cartilage is grossly well maintained. In the lateral compartment, the cartilage is grossly well maintained as well. No acute fracture. Joint space: Small knee effusion. No popliteal cyst. Mild tendinosis of the distal semimembranosus. IMPRESSION: 1. Horizontal oblique tear of the medial meniscus body. 2. Mild tendinosis of the patellar tendon. 3. Mild chondrosis of the patellofemoral compartment with mild subchondral marrow edema in the trochlea. Dictated by: Usha Sherwood M.D. on 07/28/2024 at 13:47 Approved by: Usha Sherwood M.D. on 07/28/2024 at 13:56
== END ==
PROVIDERS: Referring Provider Orthopaedic Surgery Adult Reconstructive Orthopaedic Surgery; Visit Provider Orthopaedic Surgery Adult Reconstructive Orthopaedic Surgery
DX: S83.241A Other tear of medial meniscus, current injury, right knee, initial encounter (principal); M22.41 Chondromalacia patellae, right knee; M25.561 Pain in right knee; M25.461 Effusion, right knee
CPT/HCPCS: 73721

== ENCOUNTER → 2024-10-23 11:13 | Outpatient (CLI) | payer OTHER, SELFPAY ==
--- NOTE | 2024-10-23 11:14 | DI.MRI.S_ITS ---
PROCEDURE: MR CERVICAL SPINE WO/W CON INDICATIONS: cervicalgia TECHNIQUE: Noncontrast sagittal T1 spin echo and T2 fast spin echo, sagittal STIR, foraminal oblique sagittal T2 fast spin echo, axial gradient echo or T2 fast spin echo through the cervical spine. After the administration of contrast, axial and sagittal T1 spin echo with fat saturation through the cervical spine. COMPARISON: [facility], , SPINE CERVICAL 2 OR 3VW, 01/06/2016, 14:58. FINDINGS: Image quality: Excellent. Alignment and curvature: There is slightly increased cervical lordosis with focal increased lordotic angulation more pronounced at the C5-C6 intervertebral disc spacer. Marrow: Marrow is normal in overall signal, without suspicious enhancement. Spinal cord: Visualized spinal cord has normal size and signal. No cerebellar tonsillar herniation. No abnormal intramedullary enhancement. Paraspinous soft tissues: No paravertebral masses or suspicious enhancement. C2-3: Normal appearance. C3-4: Normal appearance. C4-5: Normal appearance. C5-6: Small disc bulge and posterior longitudinal ligament and focal protruding ligamentum flavum thickening resulting in moderate central canal stenosis and mild to moderate bilateral neural foraminal stenosis. C6-7: Normal appearance. C7-T1: Normal appearance. IMPRESSION: Moderate central canal stenosis at C5-C6 with [id number] bilateral neural foraminal stenosis. No abnormal enhancement. Dictated by: López Thomason M.D. on 10/23/2024 at 16:27 Approved by: López Thomason M.D. on 10/23/2024 at 16:41
== END ==
PROVIDERS: Referring Provider Nurse Practitioner Family; Visit Provider Nurse Practitioner Family
DX: M50.322 Other cervical disc degeneration at C5-C6 level (principal); M48.02 Spinal stenosis, cervical region; Z98.890 Other specified postprocedural states
CPT/HCPCS: 72156; A9579